=== PATIENT | male | born 1955 | race Caucasian/White ===

== ENCOUNTER → 2017-04-11 | Outpatient (CLI) | payer OTHER ==
[~2017-04-11] MED LIST: ADVIL200 MG PO; CARDURA2 M1 PO; TIMOLOL MALEATE15 M1 BOTH EYES
== END | disposition home or self-care (01) ==
LOC: CDC 08:25
DX: Z01.810 Encounter for preprocedural cardiovascular examination (principal); D49.2 Neoplasm of unspecified behavior of bone, soft tissue, and skin; D48.5 Neoplasm of uncertain behavior of skin
CPT/HCPCS: 93000

== ENCOUNTER → 2017-04-14 | Outpatient (CLI) | payer OTHER ==
[~2017-04-14] MED LIST changes: +NORCO 5/3251 TABLET PO
== END | disposition home or self-care (01) ==
LOC: RAD 08:25
DX: Z01.818 Encounter for other preprocedural examination (principal); D49.2 Neoplasm of unspecified behavior of bone, soft tissue, and skin; Z87.891 Personal history of nicotine dependence
CPT/HCPCS: 71020

== ENCOUNTER 2017-04-16 05:41 | Day surgery (SDC) | payer OTHER ==
[~2017-04-16] VITALS: Ht 182.9 cm; Wt 81.6 kg
[~2017-04-16 05:41] MED LIST changes: -NORCO 5/3251 TABLET PO
[2017-04-16 06:34] VITALS: BP 144/83
[2017-04-16] MEDS ORDERED: NORCO 5/3251 TABLET PO (08:16)
[2017-04-16 09:40] VITALS: BP 138/81
[2017-04-16 10:40] VITALS: BP 142/74
== END 2017-04-16 10:50 | disposition home or self-care (01) ==
LOC: SDC 05:41
PROC: 0JQ70ZZ Repair Back Subcutaneous Tissue and Fascia, Open Approach (ICD-10-PCS; principal; 2017-04-16)
PROC: 0JB70ZZ Excision of Back Subcutaneous Tissue and Fascia, Open Approach (ICD-10-PCS; principal; 2017-04-16)
DX: C44.519 Basal cell carcinoma of skin of other part of trunk (principal); N40.1 Benign prostatic hyperplasia with lower urinary tract symptoms; R35.0 Frequency of micturition; F17.200 Nicotine dependence, unspecified, uncomplicated
CPT/HCPCS: 88305; J0131; J0330; J0690; J1100; J1885; J2250; J2405; J3010